=== PATIENT | male | born 1950 | race Caucasian/White ===

== ENCOUNTER → 2017-11-25 | Day surgery (SDC) | payer BC ==
--- NOTE | 2017-11-24 17:39 | Diagnostic Imaging Report ---
PROCEDURE: Frontal and lateral views of the chest. COMPARISON: None. INDICATIONS: PRE-OP FOR PROSTATE BIOPSY 11/25/17 FINDINGS: Lines/tubes: None. Lungs: Lungs are well-inflated. Linear opacity in the left lower lung reflecting subsegmental atelectasis or scarring. No consolidation Pleura: There is no pleural effusion or pneumothorax. Posterior eventration of the left hemidiaphragm. Heart and mediastinum: Is unremarkable. Pulmonary vasculature is normal. Bones: Mild anterior wedging of midthoracic vertebral bodies, which may reflect age-indeterminate compression deformities. No focal sclerotic lesions. Degenerative changes in the thoracic spine IMPRESSION: 1. No acute cardiopulmonary abnormalities. Celestino Mahmood M.D. Dictated by: Celestino Mahmood M.D. on 11/24/2017 at 17:44 Electronically approved by: Celestino Mahmood M.D. on 11/24/2017 at 17:44
[~2017-11-25] MED LIST: CEFTRIAXONE SOD 1 GM VIAL ONE; CENTRUM SILVER1 EAC3; DEXAMETHASONE SOD PHOS INJ 4 MG/ML VIAL ONE; FENTANYL CITRATE/PF 100MCG/2 ML INJ ONE; GENTAMICIN 80MG/NS 100 ML 200 ML IV ONE; LIDOCAINE HCL 2% LOCAL INJ 5 ML SDV VIAL INJ ONE; MIDAZOLAM HCL 2 MG/2 ML VIAL ONE; ONDANSETRON HCL INJ 2 MG/ML VIAL ONE; PRESERVISION A1 EACH; PROPOFOL IV EMULSION 10 MG/ML 20 ML VIAL ONE; SEVOFLURANE INHAL SOLN 250 ML PEN BTL ONE; VITAMIN D32000 UNIT
--- NOTE | 2017-11-25 13:18 | Operative Report ---
DATE OF PROCEDURE: November 25, 2017 PREOPERATIVE DIAGNOSES 1. Prostatic hypertrophy. 2. Rule out carcinoma of the prostate. 3. Abnormal prostate specific antigen, 5.7. POSTOPERATIVE DIAGNOSES 1. Prostatic hypertrophy. 2. Rule out carcinoma of the prostate. 3. Abnormal prostate specific antigen, 5.7. OPERATIONS 1. Transrectal ultrasound of the prostate. 2. Transrectal ultrasound-guided needle biopsies. 3. Cystourethroscopy. SLIDE DEVELOPER: Dr. Xie. ANESTHETIC: General. INDICATIONS: Mr. Montague is a 67-year-old male who presented with a chief complaint of lower urinary tract obstructive symptoms and elevated PSA of 5.7. Rectal exam showed the prostate gland to be about 35 to 40 g with firm areas on the right base and the left apical area. PROCEDURE IN DETAIL: This patient was placed on the table and transrectal ultrasound of the prostate was performed and it was noted that the prostate measured 3.9 x 3.1 x 4.2 with a total volume of 28.5 mL. There were 2 hypoechoic areas that measured 1.1 x 0.9 and 1.3 x 0.8. Transrectal ultrasound-guided needle biopsies were obtained and multiple biopsies were obtained from both hypoechoic areas and also from the normal-appearing prostate to map it for any multifocal carcinoma. This patient was then prepped and draped in a sterile manner. A #[id number] cystoscope was used and cystourethroscopy was performed and it was noted that the urethra was normal. The prostatic urethra was about 3 cm long, bilobar, and occlusive. Cystoscopy was then performed using both right-angle and the foroblique lens and it was noted that the bladder mucosa was normal with no evidence of gross tumor, pathology, or any papillary lesions. The bladder wall was mildly trabeculated. Both ureteral orifices were seen and were within normal position, configuration, and efflux. Plans for this patient are to go home today. He is to return to the office in 1 week and at that time results of the biopsy will be back. DISCHARGE MEDICATIONS 1. Levaquin 750 mg once a day for 1 week. 2. Ultracet tablet 1 every 6 to 8 hours p.r.n. and was given 20. Job#: [id number]
== END | disposition home or self-care (01) ==
LOC: OR 08:06
PROVIDERS: ATTEND Specialist
DX: C61 Malignant neoplasm of prostate (principal); N40.1 Benign prostatic hyperplasia with lower urinary tract symptoms; R97.20 Elevated prostate specific antigen [PSA]; N13.8 Other obstructive and reflux uropathy; J44.9 Chronic obstructive pulmonary disease, unspecified
CPT/HCPCS: 52000; 55700; 71046; 76872 ×2; 76942; 88305; J0696; J1100; J1580; J2001; J2250; J2405